=== PATIENT | male | born 1990 | race African-American/Black ===

== ENCOUNTER 2020-07-18 23:28 | Emergency (ER) | payer OTHER ==
[2020-07-19] MEDS ORDERED: Sodium Chloride 0.9% 500 ML ONE
[2020-07-19 00:11] LABS: ALT (SGPT) 34 U/L (8-55); AST (SGOT) 61 U/L (5-34); Albumin 4.6 g/dL (3.5-5.0); Alkaline Phosphatase 106 U/L (40-110); Anion Gap 15 mmol/L (10-20); BUN (Urea Nitrogen) 10 mg/dL (8.9-20.6); Bilirubin, Total 3.1 mg/dL (0.2-1.2); Calc. Creatinine Clearance 0 mL/min (70-130); Calcium 9.6 mg/dL (7.8-10.44); Carbon Dioxide 24 mmol/L (22-29); Chloride 102 mmol/L (98-107); Globulin 3.8 g/dL (2.4-3.5); Glucose 99 mg/dL (70-105); Potassium 4.1 mmol/L (3.5-5.1); Protein, Total 8.4 g/dL (6.0-8.3); Sodium 137 mmol/L (136-145)
[2020-07-19 00:21] LABS: Eosinophils 5 % (0-10); Hemoglobin 7.4 g/dL (14.0-18.0); Hypochromia MODERATE=16-30 cells (100X) (0-5/hpf); Lymphocytes 49 % (21-51); MDiff Complete? YES; Mean Corpuscular HGB CONC 35.4 g/dL (32.0-36.0); Mean Corpuscular Hemoglobin 28.9 pg (27.0-31.0); Mean Corpuscular Volume 81.7 fL (78.0-98.0); Monocytes 3 % (0-10); Neutrophil 43 % (42-75); Platelet Count 266 thou/uL (130-400); Platelet Morphology Comment Appears Adequate; Poikilocytosis MARKED = >30 cells (100X) (0-5/hpf); RBC Distribution Width 21.7 % (11.5-14.5); Red Blood Cell (RBC) Count 2.57 mill/uL (4.70-6.10); Reflex for Review?? NO; Sickle Cells MARKED = >16 cells (100X) (None Seen)
[2020-07-19] MEDS ORDERED: Fentanyl 100 MCG/2 ML VIAL ONE ×2 (00:30)
[2020-07-19 00:41] LABS: White Blood Cell (WBC) Count 16.5 thou/uL (4.8-10.8)
[2020-07-19 01:08] LABS: Reticulocyte Count 11.2 % (0.5-1.5)
[2020-07-19] MEDS ORDERED: Morphine 4 MG/ML VIAL ONE (01:13)
[2020-07-19] MEDS ORDERED: Sodium Chloride 0.9% 1,000 ML ONE (01:47)
== END 2020-07-19 03:15 | disposition left against medical advice (07) ==
LOC: NAV ERS 23:28
DX: D57.00 Hb-SS disease with crisis, unspecified (principal); J45.909 Unspecified asthma, uncomplicated; E03.9 Hypothyroidism, unspecified; Z79.891 Long term (current) use of opiate analgesic; Z79.899 Other long term (current) drug therapy
CPT/HCPCS: 36415; 71045; 80053; 85025; 85046; 93005; 94760; 96374; 96375; J2270; J3010; J7030; J7050